=== PATIENT | male | born 1990 | race Hispanic/Latino ===

== ENCOUNTER 2019-04-30 14:06 | Emergency (ER) | payer OTHER ==
[~2019-04-30] VITALS: Ht 182.9 cm; Wt 147.9 kg
== END 2019-04-30 17:00 | disposition home or self-care (01) ==
LOC: ED 14:06
DX: S82.831A Other fracture of upper and lower end of right fibula, initial encounter for closed fracture (principal); S82.891A Other fracture of right lower leg, initial encounter for closed fracture; S93.04XA Dislocation of right ankle joint, initial encounter; W19.XXXA Unspecified fall, initial encounter
CPT/HCPCS: 27840; 73590; 73610; 99283-25; J1170; J2250; J2405